=== PATIENT | male | born 1995 | race Caucasian/White ===

== ENCOUNTER 2024-08-29 23:45 | Emergency (ER) | payer SELFPAY ==
[2024-08-29 23:45] VITALS: BMI 21.0
[2024-08-29 23:52] VITALS: BP 124/75
[2024-08-30 00:57] VITALS: BP 116/67
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
[2024-08-30] MEDS: MOTRIN 600 MG PO (01:49)
== END 2024-08-30 02:41 | disposition home or self-care (01) ==
LOC: EMR 23:45
PROVIDERS: EMERGENCY PHYSICIAN Emergency Medicine; FAMILY PHYSICIAN Family Medicine
DX: Z04.1 Encounter for examination and observation following transport accident (principal); V43.52XA Car driver injured in collision with other type car in traffic accident, initial encounter; Y92.410 Unspecified street and highway as the place of occurrence of the external cause
CPT/HCPCS: 99284; 70450; 72125